=== PATIENT | male | born 2000 | race Caucasian/White ===

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

== ENCOUNTER 2020-11-12 12:27 | Emergency (ER) | payer OTHER ==
[2020-11-12] MEDS ORDERED: IPRATROPIUM-ALBUTEROL 3 ML NEB INHALATION STA ×2 (13:29→14:47)
--- NOTE | 2020-11-12 14:03 | XR ---
EXAMINATION TYPE: XR chest 2V DATE OF EXAM: 11/12/2020 COMPARISON: Chest x-ray February 25, 2010 HISTORY: History of asthma with difficulty breathing. TECHNIQUE: Frontal and lateral views of the chest are obtained. FINDINGS: There is no suspicious new focal air space opacity, pleural effusion, or pneumothorax seen . The cardiac silhouette size is stable and within normal limits. The osseous structures are inta ct. IMPRESSION: No acute pulmonary process.
--- NOTE | 2020-11-12 14:08 | ED ---
General Adult HPI - General Source: patient, RN notes reviewed Mode of arrival: ambulatory Limitations: no limitations <Juan Sinclair - Last Filed: 11/12/20 14:36> <Marleen Berg - Last Filed: 11/12/20 15:37> - General Chief complaint: Shortness of Breath Stated complaint: asthma Time Seen by Provider: 11/12/20 13:29 - History of Present Illness Initial comments: Patient is a 20-year-old male that presents to emergency department complaining of a 3 day history of asthma attack. He notes that he tried his at-home inhalers with very minimal relief. He notes he staying in a new place with lots of peds and thinks that might be his trigger. Patient denied any contacts with Covid-positive people. He was otherwise a well-appearing 20-year-old male in no apparent distress or pain. He denied any chest pain headache nausea vomiting diarrhea constipation fever fatigue chills. (Juan Sinclair) - Related Data Home Medications Medication Instructions Recorded Confirmed FLUoxetine HCL [PROzac] 40 mg PO DAILY 10/14/17 12/17/18 ARIPiprazole [Abilify] 5 mg PO HS 12/17/18 12/17/18 Previous Rx's Medication Instructions Recorded lamoTRIgine [LaMICtal] 25 mg PO BID #20 tablet 08/21/17 Albuterol Nebulized [Ventolin 2.5 mg INHALATION Q4H PRN #75 ml 11/12/20 Nebulized] Albuterol Sulfate [Albuterol 2 puff PO Q6H #8.5 gm 11/12/20 Sulfate Hfa] Albuterol Sulfate [Albuterol 2 puff PO Q6H #8.5 gm 11/12/20 Sulfate Hfa] predniSONE 50 mg PO DAILY #5 tab 11/12/20 Allergies Allergy/AdvReac Type Severity Reaction Status Date / Time azithromycin [From Zithromax] Allergy Rash/Hives Verified 11/12/20 13:01 chocolate flavor Allergy Unknown Verified 11/12/20 13:01 red dye Allergy Unknown Verified 11/12/20 13:01 Childhood Review of Systems ROS Other: All systems not noted in ROS Statement are negative. <Juan Sinclair - Last Filed: 11/12/20 14:36> ROS Other: All systems not noted in ROS Statement are negative. <Marleen Berg Neal - Last Filed: 11/12/20 15:37> ROS Statement: Those systems with pertinent positive or pertinent negative responses have been documented in the HPI. Past Medical History Past Medical History: No Reported History History of Any Multi-Drug Resistant Organisms: None Reported Past Surgical History: No Surgical Hx Reported Past Psychological History: ADD/ADHD, Bipolar, Depression Past Alcohol Use History: None Reported, Occasional Past Drug Use History: Marijuana <Juan Sinclair - Last Filed: 11/12/20 14:36> General Exam Limitations: no limitations General appearance: alert, in no apparent distress Head exam: Present: atraumatic, normocephalic, normal inspection Eye exam: Present: normal appearance, PERRL, EOMI. Absent: scleral icterus, conjunctival injection, periorbital swelling ENT exam: Present: normal exam, mucous membranes moist Neck exam: Present: normal inspection Respiratory exam: Present: normal lung sounds bilaterally, wheezes (Bilateral lower lobes). Absent: respiratory distress, rales, rhonchi, stridor Cardiovascular Exam: Present: regular rate, normal rhythm, normal heart sounds. Absent: systolic murmur, diastolic murmur, rubs, gallop, clicks Extremities exam: Present: normal inspection, full ROM, normal capillary refill. Absent: tenderness, pedal edema, joint swelling, calf tenderness Neurological exam: Present: alert, oriented X3 Psychiatric exam: Present: normal affect, normal mood Skin exam: Present: warm, dry, intact, normal color. Absent: rash <Juan Sinclair - Last Filed: 11/12/20 14:36> Course Vital Signs 11/12/20 11/12/20 11/12/20 13:01 13:54 14:03 Temperature 97.9 F Pulse Rate 88 88 Respiratory 18 24 Rate Blood Pressure 126/76 O2 Sat by Pulse 93 L Oximetry 11/12/20 11/12/20 11/12/20 14:05 15:16 15:29 Temperature Pulse Rate 92 110 H 96 Respiratory Rate Blood Pressure O2 Sat by Pulse Oximetry Medical Decision Making - Radiology Data Radiology results: report reviewed, image reviewed <Juan Sinclair - Last Filed: 11/12/20 14:36> - Medical Decision Making 20-year-old male complaining of a asthma attack [place] [facility] [place]. Chest x-ray negative for any acute cardiopulmonary process. Patient will be sent inhaler to pharmacy. (Juan Sinclair) - Radiology Data Chest x-ray: No acute pulmonary process. (Juan Sinclair) Disposition Is patient prescribed a controlled substance at d/c from ED?: No Time of Disposition: 14:41 <Juan Sinclair - Last Filed: 11/12/20 14:36> <Marleen Berg - Last Filed: 11/12/20 15:37> Clinical Impression: Asthma Disposition: HOME SELF-CARE Condition: Stable Instructions (If sedation given, give patient instructions): Asthma (ED) Additional Instructions: Please return to the Emergency Department if symptoms worsen or any other concerns. Follow-up with primary care 1-2 days. Take inhaler as prescribed. Prescriptions: Albuterol Sulfate [Albuterol Sulfate Hfa] 2 puff PO Q6H #8.5 gm Albuterol Sulfate [Albuterol Sulfate Hfa] 2 puff PO Q6H #8.5 gm predniSONE 50 mg PO DAILY #5 tab Albuterol Nebulized [Ventolin Nebulized] 2.5 mg INHALATION Q4H PRN #75 ml PRN Reason: difficulty in breathing Referrals: Rory Dawson MD [Primary Care Provider] - 1-2 days
[2020-11-12] MEDS ORDERED: predniSONE 20 MG TAB PO STA (14:45)
[2020-11-12 16:58] VITALS: BP 122/72; PULSE 98; RESP 20; TEMP 98.3
== END 2020-11-12 16:58 | disposition home or self-care (01) ==
LOC: EC 12:27
DX: J45.909 Unspecified asthma, uncomplicated (principal); F31.9 Bipolar disorder, unspecified; F12.90 Cannabis use, unspecified, uncomplicated; F90.9 Attention-deficit hyperactivity disorder, unspecified type; Z79.51 Long term (current) use of inhaled steroids
CPT/HCPCS: 94640 ×2; 71046; 99285; J7512